=== PATIENT | male | born 1955 | race Caucasian/White ===

== ENCOUNTER → 2016-10-28 | Outpatient (CLI) | payer OTHER ==
[~2016-10-28] VITALS: Ht 182.9 cm; Wt 90.7 kg
[~2016-10-28] MED LIST: ALBUTEROL2.5 MG/31 INH; DIAZEPAM 10 MG10 M2 PO; LISINOPRIL40 MG PO; OMEPRAZOLE 20 M20 M1 PO; SYMBICORT160 MCG/4. INH
--- NOTE | ~2016-10-28 | HPC ---
[facility] [place] [address] PAIN MANAGEMENT CONSULTATION Name: RUDDKEE SHAW Room #: REG [facility] Anabelle#: [id number] Admission: 10/28/16 Attend Phys: Elpidio Yost DO Discharge: Date of : 54 Report #: [id number] THIS REPORT FOR: //name// CC: Obi Yost HISTORY OF PRESENT ILLNESS: The patient is a 60-year-old gentleman seen in consultation at the request of Dr. Lucero. The patient had prior been seen in the pain clinic some 13 years ago, in August 2003. At that time, he was treated for right testicular pain, lumbar radiculopathy and SI-mediated pain. In the interval since we saw him, he had had excellent relief for about 9 months following the injection, lost to follow up. The pain had recurred. He saw multiple other pain physicians including, Julio Cesar Nix and Balbir Reardon. Interventions at their hands unfortunately yielded less than desirable results. He presents to the pain clinic today for reevaluation of ongoing right testicular pain. The patient notes that he had developed right testicular pain around 1979, had surgery for benign mass in the testicle around that time. Again, I saw him back in 2003. We did a right L5-S1 transforaminal injection and a right SI joint injection with dramatic improvement of his pain at that time. He notes pain that continues to be problematic currently. It is continuous, aching sensation, tender to touch in the right testicle. He rates his pain at "10" on a 0-10 visual analog scale. Sitting or crossing his legs exacerbate pain. Nothing seems be giving him relief. REVIEW OF SYSTEMS: Complete review of systems was attached to chart and was gone over with the patient. He is single. He smokes half a pack a day, which he has for 40 years. He does not drink alcohol to excess. He has had some history of hypertension and colon issues along with reactive airway disease. CURRENT MEDICATIONS: Include omeprazole for gastroesophageal reflux, lisinopril, Symbicort, AccuNeb and diazepam 10 mg b.i.d. for some chronic anxiety concerns. PHYSICAL EXAMINATION: GENERAL: Reveals a 183 cm, 90 kilogram gentleman, BMI is 27.1 kilograms per meter squared. Blood pressure is 110/71, pulse is 88, respirations are 16. NEUROLOGIC: Cranial nerves 2-12 are grossly intact. He does have a little lateral gaze nystagmus. He has faint benign tremor. NECK: Cervical range of motion is otherwise unremarkable. Thyroid is modestly enlarged. HEART: Regular and rhythmical without murmur. He does have some scattered rhonchi and decreased breath sounds. EXTREMITIES: Upper extremity strength is symmetric at 4/5 to all muscle groups tested. Lower extremity strength is symmetric. Gait is tandem. [address] [address] PAIN MANAGEMENT CONSULTATION Name: RUDDKEE VALERIA Room #: REG [facility]#: [id number] Admission: 10/28/16 Attend Phys: Elpidio Yost DO Discharge: Date of : 53 Report #: [id number] GENITOURINARY: Exquisitely tender in the right testicle. I cannot discern a palpable hernia on this side. He is not tender over the inguinal canal. DIAGNOSTIC STUDIES: Include MRI of the lumbar spine from 10/25/2013, noting multilevel degenerative changes, most marked at L3-L4 with moderate broad-based disk bulge causing spinal stenosis at this level. ASSESSMENT: Symptomatic lumbar radiculopathy with right testicular pain, component of sacroiliac joint dysfunction by history. RECOMMENDATIONS: Discussion with the patient today about therapeutic options. Again, given the excellent relief he had had with right L5-S1 transforaminal injection along with right SI joint injection 13 years ago for the same problem, we will seek authorization for right L5-S1 transforaminal epidural injection at next visit. Continue Aleve p.r.n. He is not taking any hydrocodone presently. We may consider starting a membrane stabilizing agent (gabapentin?). Thank you for allowing me to participate in the patient' care. We will seek authorization for right L5-S1 transforaminal epidural injection for next visit. <ELECTRONICALLY SIGNED> By: Elpidio Yost DO 10/29/16 0948 1229 1310 Elpidio Yost DO /nt
[2016-10-28 10:31] VITALS: BP 110/71
== END | disposition home or self-care (01) ==
LOC: PAIN 09:48
DX: M54.16 Radiculopathy, lumbar region (principal); N50.811 Right testicular pain; M53.3 Sacrococcygeal disorders, not elsewhere classified; F17.210 Nicotine dependence, cigarettes, uncomplicated; R06.02 Shortness of breath; Z98.890 Other specified postprocedural states

== ENCOUNTER → 2016-11-01 | Outpatient (CLI) | payer OTHER ==
[~2016-11-01] VITALS: Ht 182.9 cm; Wt 91.2 kg
--- NOTE | ~2016-11-01 | HPC ---
[facility] [address] [facility] [place] [address] PAIN MANAGEMENT CONSULTATION Name: TOBINKEEPOLY SHAW [facility] [id number] Admission: 11/01/16 Attend Phys: Elpidio Yost DO Discharge: Date of : 54 Report #: [id number] THIS REPORT FOR: //name// CC: Obi Yost The patient is a pleasant 60-year-old gentleman, prior seen 10/28/2016, diagnosed with symptomatic lumbar radiculopathy, SI joint pain, neuropathic pain affecting right testicle. He had prior been seen a decade prior, I had proceeded with a right L5-S1 transforaminal epidural injection with significant improvement of symptoms. He was lost to followup. He was seen 10/28/2016, in consultation. We sought authorization for right L5-S1 transforaminal injection today. He returns to pain clinic today noting symptoms are unchanged. In the right testicle exacerbated with light touch and movement. Physical exam was referred. ASSESSMENT: Symptomatic lumbar radiculopathy. PROCEDURE: Transforaminal epidural injection under fluoroscopy, right L5-S1. PROCEDURE NOTE: After both written and informed consent was obtained including risk of spinal cord damage, infection, increased pain and paralysis, the patient agreed to proceed. The patient was taken to the fluoroscopy suite, placed in a prone position with appropriate abdominal bolstering. After sterile prep with ChloraPrep and sterile drape, a skin wheal with 1% Xylocaine was raised. A 22 gauge 4-1/2 inch epidural Tuohy needle was inserted. From an oblique approach into the posterior-superior aspect of the left L4-L5 neural foramen with continuous pressure on the glass syringe plunger for loss of resistance. Glass syringe was filled with 2 cc of 0.1 Xylocaine. The glass loss of resistance syringe was removed. A low volume extension tubing was connected, negative aspiration was accomplished for cerebrospinal fluid or blood. 1 mL of Omnipaque was injected which showed spread both within the epidural space and laterally along the nerve root. This was followed with 80 mg of triamcinolone plus 1 mL of 1.5% preservative-free Xylocaine. Needle was partially withdrawn, 0.5 mL of Xylocaine was injected to clear the needle and the needle was removed. The area was cleansed, band-aid was applied. The patient was allowed to ambulate to the recovery room, discharged in good and stable condition. <ELECTRONICALLY SIGNED> By: Elpidio Yost DO 11/03/16 1246 0824 1038 Elpidio Yost DO /nt
[2016-11-01 07:59] VITALS: BP 124/84
== END | disposition home or self-care (01) ==
LOC: PAIN 06:33
DX: M54.16 Radiculopathy, lumbar region (principal); M53.3 Sacrococcygeal disorders, not elsewhere classified; G62.9 Polyneuropathy, unspecified; F17.200 Nicotine dependence, unspecified, uncomplicated

== ENCOUNTER → 2016-12-06 | Outpatient (CLI) | payer OTHER ==
[~2016-12-06] VITALS: Ht 182.9 cm; Wt 90.3 kg
[2016-12-06 08:03] VITALS: BP 138/95
== END | disposition home or self-care (01) ==
LOC: PAIN 06:31
DX: M54.16 Radiculopathy, lumbar region (principal); N50.811 Right testicular pain; F41.8 Other specified anxiety disorders; F17.210 Nicotine dependence, cigarettes, uncomplicated; Z98.890 Other specified postprocedural states

== ENCOUNTER → 2016-12-17 | Outpatient (CLI) | payer OTHER ==
[~2016-12-17] VITALS: Ht 182.9 cm; Wt 90.7 kg
--- NOTE | ~2016-12-17 | HPC ---
[facility] [place] [address] PAIN MANAGEMENT CONSULTATION Name: TOBINKEE VALERIA Room #: REG [facility] Anabelle#: [id number] Admission: 12/17/16 Attend Phys: Elpidio Yost DO Discharge: Date of : 53 Report #: [id number] THIS REPORT FOR: //name// CC: Obi Yost HISTORY OF PRESENT ILLNESS: The patient is a pleasant 61-year-old gentleman, prior seen in the pain clinic 12/06/2016, diagnosed with neuropathic pain, lumbar radiculopathy, right L5, S1, S2 distribution, neuropathic pain component with right testicular pain. We sought authorization for right L5-S1 transforaminal epidural injection. The patient presents to the pain clinic today for said injection. PROCEDURE: Right L5-S1 transforaminal epidural injection under fluoroscopy. PROCEDURE NOTE: After both written and informed consent was obtained including risk of spinal cord damage, infection, increased pain and paralysis, the patient agreed to proceed. The patient was taken to the fluoroscopy suite, placed in a prone position with appropriate abdominal bolstering. After sterile prep with ChloraPrep and sterile drape, a skin wheal with 1% Xylocaine was raised. A 22 gauge 4-1/2 inch epidural Tuohy needle was inserted. From an oblique approach into the posterior-superior aspect of the left L4-L5 neural foramen with continuous pressure on the glass syringe plunger for loss of resistance. Glass syringe was filled with 2 cc of 0.1 Xylocaine. The glass loss of resistance syringe was removed. A low volume extension tubing was connected, negative aspiration was accomplished for cerebrospinal fluid or blood. 1 mL of Omnipaque was injected which showed spread both within the epidural space and laterally along the nerve root. This was followed with 80 mg of triamcinolone plus 1 mL of 1.5% preservative-free Xylocaine. Needle was partially withdrawn, 0.5 mL of Xylocaine was injected to clear the needle and the needle was removed. The area was cleansed, band-aid was applied. The patient was allowed to ambulate to the recovery room, discharged in good and stable condition. The patient was discharged in good and stable condition. Follow up in 3 weeks to reevaluate. <ELECTRONICALLY SIGNED> By: Eplidio Yost DO 12/20/16 1427 1049 1153 Elpidio Yost DO /nt
[2016-12-17 09:17] VITALS: BP 120/86
== END | disposition home or self-care (01) ==
LOC: PAIN 12-16 07:41
DX: M54.16 Radiculopathy, lumbar region (principal); G62.9 Polyneuropathy, unspecified

== ENCOUNTER → 2017-03-31 | Outpatient (CLI) | payer OTHER ==
[~2017-03-31] VITALS: Ht 182.9 cm; Wt 89.5 kg
--- NOTE | ~2017-03-31 | HPC ---
[facility] [place] [address] PAIN MANAGEMENT CONSULTATION Name: TOBINKEE VALERIA Room #: REG [facility]#: [id number] Admission: 03/31/17 Attend Phys: Elpidio Yost DO Discharge: Date of : 53 Report #: [id number] THIS REPORT FOR: //name// CC: Obi Yost DATE OF SERVICE: 03/31/2017 The patient is a very pleasant 61-year-old gentleman being treated for neuropathic pain, lumbar radiculopathy. He has had good relief with right L5-S1 transforaminal epidural injection in the past, initial injection in 2003 gave excellent relief for many years. He was seen in followup this year, I did a single right L5-S1 transforaminal epidural injection 11/01/2016 with excellent relief about 60% overall. Repeated injection 12/17/2016 with unfortunately less efficacy at that time. Returns to pain clinic today pain continues in the low back, right buttock and groin and into the testicle. Pain is exacerbated with sitting and bending. Rates his pain 8 or 9 on a VAS. PHYSICAL EXAMINATION: Unchanged 61-year-old gentleman, BMI is 26.8 kilograms per meter squared. Vital signs stable as noted on the EMR. Rises from chair using armrest. Diffuse tenderness in the right testicle and groin, moderately antalgic gait, positive straight leg raise on the right. ASSESSMENT: Symptomatic lumbar radiculopathy, neuropathic pain RECOMMENDATION: Discussion with the patient today about therapeutic option. We have elected to proceed with a right L5-S1 transforaminal epidural injection today, with careful placement to try and get Omnipaque spreading down to the S1 nerve root. If this does not afford adequate relief, we talked about spinal cord stimulator as possible therapeutic option. We briefly touched on risks, benefits of this therapeutic modality. We will discuss this at length at next visit if he does not get adequate relief from this injection. ASSESSMENT: Symptomatic lumbar radiculopathy, neuropathic pain. PROCEDURE: Right L5-S1 transforaminal epidural injection under fluoroscopy. PROCEDURE NOTE: After both written and informed consent was obtained including risk of spinal cord damage, infection, increased pain and paralysis, the patient agreed to proceed. The patient was taken to the fluoroscopy suite, placed in a prone position with appropriate abdominal bolstering. After sterile prep with ChloraPrep and sterile drape, a skin wheal with 1% Xylocaine was raised. A 22 gauge 4-1/2 inch epidural Tuohy needle was inserted. From an oblique approach into the posterior-superior aspect of the right L5-S1 neural foramen with [address] [address] PAIN MANAGEMENT CONSULTATION Name: KEE RUDD Room #: REG [facility]#: [id number] Admission: 03/31/17 Attend Phys: Elpidio Yost DO Discharge: Date of : 53 Report #: [id number] continuous pressure on the glass syringe plunger for loss of resistance. Glass syringe was filled with 2 cc of 0.1 Xylocaine. The glass loss of resistance syringe was removed. A low volume extension tubing was connected, negative aspiration was accomplished for cerebrospinal fluid or blood. 1 mL of Omnipaque was injected which showed spread both within the epidural space and laterally along the nerve root. This was followed with 80 mg of triamcinolone plus 1 mL of 1.5% preservative-free Xylocaine. Needle was partially withdrawn, 0.5 mL of Xylocaine was injected to clear the needle and the needle was removed. The area was cleansed, band-aid was applied. The patient was allowed to ambulate to the recovery room, discharged in good and stable condition. <ELECTRONICALLY SIGNED> By: Elpidio Yost DO 04/01/17 0731 0855 1818 Elpidio Yost DO /nt
[2017-03-31 08:16] VITALS: BP 127/88
== END | disposition home or self-care (01) ==
LOC: PAIN 12-17 12:51
DX: M54.16 Radiculopathy, lumbar region (principal); G89.29 Other chronic pain; F17.200 Nicotine dependence, unspecified, uncomplicated; Z79.899 Other long term (current) drug therapy; Z98.890 Other specified postprocedural states

== ENCOUNTER → 2017-09-05 | Outpatient (CLI) | payer OTHER ==
[~2017-09-05] VITALS: Ht 185.4 cm; Wt 86.6 kg
--- NOTE | ~2017-09-05 | HPC ---
[facility] [place] [address] PAIN MANAGEMENT CONSULTATION Name: KEE RUDD Room #: REG [facility] Anabelle#: [id number] Admission: 09/05/17 Attend Phys: Elpidio Yost DO Discharge: Date of : 53 Report #: [id number] THIS REPORT FOR: //name// CC: Obi Yost DATE OF SERVICE: 09/05/2017 PAIN CLINIC NOTE The patient is a 61-year-old gentleman, prior seen in pain clinic back in March. The patient was given a right L5-S1 transforaminal epidural injection for right testicular pain. The patient has been treated with right L5-S1 transforaminal epidural injections off and on since 2003 for idiopathic neuropathic pain, right testicle with excellent relief following the said procedures. He returns to pain clinic today, was seen for prolonged visit from 08:28 to 08:55, greater than 50% of the 25+ minute visit was spent counseling the patient, reviewing therapeutic options and concerns. The patient has been at [facility], had a CT of the abdomen back in December for rectal bleeding. This did show an umbilical hernia, left inguinal hernia and some colonic diverticuli. Ultimately, he had some right upper quadrant abdominal pain and again was seen back at [facility] on 04/07/2017, had ultrasound of the abdomen for right upper quadrant pain, which fortunately was benign. Back studies are dated from 2013, MRI had shown diffuse DJD. He returns to pain clinic today with ongoing pain, right testicle exacerbated with standing, walking and bending. He notes symptoms began following benign testicular mass excision. There is a benign testicular mass excision in 1978 (spermatocele?). He notes good relief following the right L5-S1 transforaminal epidural injections, specifically 80% relief for 2-3 months. Currently, he rates his pain 8 to 9 on a VAS, exacerbated with bending and standing. He gets some relief sitting in a recliner. He has not had a spinal surgery. PHYSICAL EXAMINATION: Shows a 61-year-old gentleman, BMI is 25.2 kilograms per meter squared. Blood pressure 138/79, pulse 70, respirations 16. Rises from chair using armrest, has hyperpathia and allodynia about the right groin and testicle. Positive straight leg raise on the right. Lower extremity strength is preserved. ASSESSMENT: Symptomatic lumbar radiculopathy by clinical exam and history, neuropathic pain, [place] [address] PAIN MANAGEMENT CONSULTATION Name: RUDDKEE SHAW Room #: REG [facility] nAabelle#: [id number] Admission: 09/05/17 Attend Phys: Elpidio Yost DO Discharge: Date of : 53 Report #: [id number] RECOMMENDATION: We will seek authorization for right L5-S1 transforaminal epidural injection at next visit. <ELECTRONICALLY SIGNED> By: Elpidio Yost DO 09/07/17 08 1231 1716 Elpidio Yost DO /waldo
[2017-09-05 08:25] VITALS: BP 138/79
== END ==
LOC: PAIN 04-21 13:55
DX: M47.27 Other spondylosis with radiculopathy, lumbosacral region (principal); M79.2 Neuralgia and neuritis, unspecified

== ENCOUNTER → 2017-09-09 | Outpatient (CLI) | payer OTHER ==
[~2017-09-09] VITALS: Ht 185.4 cm; Wt 86.6 kg
--- NOTE | ~2017-09-09 | HPC ---
[facility] [place] [address] PAIN MANAGEMENT CONSULTATION Name: TOBINKEE VALERIA [facility] [id number] Admission: 09/09/17 Attend Phys: Elpidio Yost DO Discharge: Date of : 54 Report #: [id number] THIS REPORT FOR: //name// CC: Obi Yost HISTORY OF PRESENT ILLNESS: The patient is a 61-year-old gentleman, prior seen in the pain clinic, 08/26/2017 with ongoing lumbar radicular pain, right L5 distribution. He has pain radiating to the right testicle and down the leg. He has had excellent relief following prior right L5-S1 transforaminal injection; once in 11/2016 and again in March. The patient presents to the pain clinic today for said procedure having received prior authorization from his third green party payer. He notes pain continues to be problematic and rates the pain an 8-9 on a VAS. Physical exam is otherwise unchanged from presentation. ASSESSMENT: Symptomatic lumbar radiculopathy. PROCEDURE: Right L5-S1 transforaminal epidural injection under fluoroscopy. PROCEDURE NOTE: After both written and informed consent was obtained including risk of spinal cord damage, infection, increased pain and paralysis, the patient agreed to proceed. The patient was taken to the fluoroscopy suite, placed in a prone position with appropriate abdominal bolstering. After sterile prep with ChloraPrep and sterile drape, a skin wheal with 1% Xylocaine was raised. A 22 gauge 4-1/2 inch epidural Tuohy needle was inserted. From an oblique approach into the posterior-superior aspect of L5-S1 on the right with continuous pressure on the glass syringe plunger for loss of resistance. Glass syringe was filled with 2 cc of 0.1 Xylocaine. The glass loss of resistance syringe was removed. A low volume extension tubing was connected, negative aspiration was accomplished for cerebrospinal fluid or blood. 1 mL of Omnipaque was injected which showed spread both within the epidural space and laterally along the nerve root. This was followed with 80 mg of triamcinolone plus 1 mL of 1.5% preservative-free Xylocaine. Needle was partially withdrawn, 0.5 mL of Xylocaine was injected to clear the needle and the needle was removed. The area was cleansed, band-aid was applied. The patient was allowed to ambulate to the recovery room, discharged in good and stable condition. <ELECTRONICALLY SIGNED> By: Elpidio Yost DO 09/12/17 0943 0839 1038 Elpidio Yost DO /nt
[2017-09-09 08:19] VITALS: BP 150/94
== END | disposition home or self-care (01) ==
LOC: PAIN 07:03
DX: M54.16 Radiculopathy, lumbar region (principal); F17.200 Nicotine dependence, unspecified, uncomplicated